=== PATIENT | male | born 1945 | race Caucasian/White ===

== ENCOUNTER 2020-01-18 15:01 | Emergency (ER) | payer MEDICARE, OTHER ==
[~2020-01-18] VITALS: Ht 165.1 cm; Wt 90.3 kg
[2020-01-18 15:08] VITALS: BP 149/71
--- NOTE | 2020-01-18 15:15 | NUR ---
Pt ambulated to bed 4.
--- NOTE | 2020-01-18 15:19 | NUR ---
74 Y/O M C/C HYPOGLYCEMIA X 1 DAY. PER PT NOTICED DROP ON BLOOD SUGAR TODAY STARTING 0830 HOURS BS OF 63 ; 0930 HOURS 26 ; 1430 HOURS 45. PER PT CURRENTLY FEELS DIZZY AND SHAKY, TAKEN SODA AND ORANGE JUICE BEFORE COMING TO ER. PT PRESENTS A/OX4,EUPNIC,AMBULATORY,VSS. BLOOD SUGAR IN ER >200. NKA. HX HTN,DM,HDL. RX HYDRALAZINE,FAMOTODINE,NIFEDIPINE. NO NVD. SIDE RAIL X1.
[2020-01-18] MEDS ORDERED: NIFE30TE5 PO (15:24)
[2020-01-18] MEDS ORDERED: FAMO-90 PO (15:24)
[2020-01-18] MEDS ORDERED: HYDR-1098 PO (15:24)
--- NOTE | 2020-01-18 15:40 | NUR ---
BLOOD OBTAINED RAINBOW - GIVEN TO LAB
[2020-01-18 15:57] LABS: BASOPHILS # (AUTO) 0.1 K/uL (0.00-0.22); BASOPHILS % (AUTO) 0.8 % (0.0-2.0); EOSINOPHILS # (AUTO) 0.1 K/uL (0-0.4); EOSINOPHILS % (AUTO) 1.1 % (0.0-4.0); HEMATOCRIT 41.2 % (36-52); HEMOGLOBIN 13.7 g/dL (12.0-18.0); MEAN CORPUSCULAR HEMOGLOBIN 30 pg (27-31); MEAN CORPUSCULAR HGB CONC 33 g/dL (33-37); MEAN CORPUSCULAR VOLUME 90.8 fL (80-94); MONOCYTES # (AUTO) 0.8 K/uL (0.8-1.0); MONOCYTES % (AUTO) 8.3 % (1.7-9.3); NEUTROPHILS # (AUTO) 5.5 K/uL (1.8-7.7); NEUTROPHILS % (AUTO) 57.8 % (42.2-75.2); PLATELET COUNT (AUTO) 229 K/uL (140-450); RED BLOOD CELL COUNT(AUTO) 4.54 MIL/uL (4.20-6.10); RED CELL DISTRIBUTION WIDTH 12.7 % (11.6-13.7); WHITE BLOOD COUNT (AUTO) 9.5 K/uL (4.8-10.8)
[2020-01-18 16:10] LABS: ALBUMIN 3.9 g/dL (3.4-5.0); ASPARTATE AMINOTRANSFERASE 34 U/L (15-37); CARBON DIOXIDE 22.9 mmol/L (21-32); CHLORIDE 100 mmol/L (98-107); CREATININE 1.9 mg/dL (0.6-1.3); GLUCOSE 248 mg/dL (74-106); LIPASE 167 U/L (73-393); POTASSIUM 3.9 mmol/L (3.5-5.1); SODIUM SERUM 136 mmol/L (136-145); TOTAL BILIRUBIN 0.5 mg/dL (0.0-1.0); UREA NITROGEN, BLOOD 15 mg/dL (7-18)
[2020-01-18 16:22] LABS: CREATINE KINASE MB 3.4 ng/mL (0-3.6)
--- NOTE | 2020-01-18 16:40 | NUR ---
PT RESTING IN BED, SIDE RAIL X1
--- NOTE | 2020-01-18 16:49 | NUR ---
PT TAKEN TO CT VIA ALESSIO
[2020-01-18 17:51] VITALS: BP 140/72
--- NOTE | 2020-01-18 17:52 | NUR ---
Patient discharged with v/s stable. Written and verbal after care instructions given and explained. Patient alert, oriented and verbalized understanding of instructions. Ambulatory with steady gait. All questions addressed prior to discharge. ID band removed. Patient advised to follow up with PMD. Rx of MYLANTA given. Patient educated on indication of medication including possible reaction and side effects. Opportunity to ask questions provided and answered.
== END 2020-01-18 17:52 | disposition home or self-care (01) ==
LOC: MED 15:01
DX: R10.9 Unspecified abdominal pain (principal); E11.649 Type 2 diabetes mellitus with hypoglycemia without coma; I10 Essential (primary) hypertension; Z87.710 Personal history of (corrected) hypospadias; Z79.899 Other long term (current) drug therapy
CPT/HCPCS: 36415; 71045; 74176; 80053; 82550; 82553; 83690; 84484; 85025; 93005; 99285; Q0092

== ENCOUNTER 2020-01-18 19:00 | Emergency (ER) | payer OTHER ==
[~2020-01-18] VITALS: Ht 172.7 cm; Wt 89.8 kg
[~2020-01-18 19:00] MED LIST: FAMO-90 PO; HYDR-1098 PO; NIFE30TE5 PO
[2020-01-18 19:15] VITALS: BP 136/82
--- NOTE | 2020-01-18 19:20 | NUR ---
PT AMBULATED TO BED 11 WITH STEADY GAIT
--- NOTE | 2020-01-18 19:28 | NUR ---
74 YO M BIB SELF FOR C/C OF HYPOGLYCEMIA. PT PRESENTED IN ER EARLIER TODAY WITH A FBS OF 46. PT WAS DISCHARGED AND RETURNED TO ER AFTER A BS READING OF 58. PT STATES THEY FELT DIZZY AND DRANK PINEAPPLE JUICE. PTS BLOOD SUGAR WAS 217 WHEN HE PRESENTED TO ER THIS EVENING. PT PLACED ON DRUM HANDLER AND PULSE OX. NKA MED HX: HTN, HYPERLIPIDEMIA, GOUT, DM2 RX: LANTUS 70/30
--- NOTE | 2020-01-18 19:29 | NUR ---
EKG AT BEDSIDE
--- NOTE | 2020-01-18 19:29 | NUR ---
LAB AT BEDSIDE
--- NOTE | 2020-01-18 19:30 | NUR ---
PT PLACED ON CARDIAC AND PULSE OX MONITOR
[2020-01-18 19:46] LABS: ANION GAP 23.8 (8-16); CARBON DIOXIDE 24.4 mmol/L (21-32); CHLORIDE 100 mmol/L (98-107); CREATININE 1.8 mg/dL (0.6-1.3); GLUCOSE 222 mg/dL (74-106); POTASSIUM 4.2 mmol/L (3.5-5.1); SODIUM SERUM 144 mmol/L (136-145); UREA NITROGEN, BLOOD 13 mg/dL (7-18)
--- NOTE | 2020-01-18 20:15 | NUR ---
CHECKED PT BLOOD SUGAR USING THE PT GLUCOMETER AND [facility]. PT GLUCOMETER SHOWED 115 AND HOSPITAL GLUCOMETER SHOWED 180. ERMD NOTIFIED OF THE RESULTS AND AWARE. NO OTHER FURTHER ORDER GIVEN.
--- NOTE | 2020-01-18 21:20 | NUR ---
PT REQUESTED TO CHECK HIS BLOOD SUGAR BEFORE DISCHARGE. LATEST BLOOD SUGAR IS 154.
[2020-01-18 21:25] VITALS: BP 148/74
--- NOTE | 2020-01-18 21:25 | NUR ---
Patient discharged with v/s stable. Written and verbal after care instructions given and explained. Patient alert, oriented and verbalized understanding of instructions. Ambulatory with steady gait. All questions addressed prior to discharge. ID band removed. Patient advised to follow up with PMD. Rx of GLUCOMETER given. Patient educated on indication of medication including possible reaction and side effects. Opportunity to ask questions provided and answered.
== END 2020-01-18 21:25 | disposition home or self-care (01) ==
LOC: MED 19:00
DX: E11.649 Type 2 diabetes mellitus with hypoglycemia without coma (principal); I10 Essential (primary) hypertension; Z87.710 Personal history of (corrected) hypospadias; Z79.899 Other long term (current) drug therapy
CPT/HCPCS: 36415; 80048; 82948; 84484; 85379; 93005; 99284